=== PATIENT | female | born 1995 | race Caucasian/White ===

== ENCOUNTER → 2016-06-10 | Outpatient (CLI) | payer BC | END | disposition home or self-care (01) | LOC: C.PAPS 14:00 | PROVIDERS: ATTEND Nurse Practitioner | DX: Z01.411 Encounter for gynecological examination (general) (routine) with abnormal findings (principal); R87.616 Satisfactory cervical smear but lacking transformation zone ==

== ENCOUNTER 2024-04-05 07:51 | Inpatient (IN) ==
[2024-04-05] MEDS ORDERED: LIDOCAINE 1% LOCAL 20 ML VIAL INFIL PRN (08:05)
[2024-04-05] MEDS: SODIUM CHLORIDE 0.9% 1,000 ML IV SCH (08:15)
[2024-04-05] MEDS: ceFAZolin 2000MG 2,000 MG/15 ML SYR IV STA (08:26)
--- NOTE | 2024-04-05 08:28 | History & Physical Report ---
Date of Service April 05, 2024 Assessment & Plan (1) Supervision of normal intrauterine in primigravida: Plan: primip at 38 6/7 weeks in active labor GBS(+) PCN allergy ( rash) will start Mefoxin now requesting epidural analgesia anticipate vaginal History of Present Illness Primary Care Provider: KIRAN Tinsley Patient is a 28 yo EDC 04/13/24 who presents with 38 6/7 weeks in active labor. contractions started about 1am and are now every 3 minutes. (+) bloody show (-) SPROM GBS(+) otherwise uncomplicated. Allergies Allergy/AdvReac Type Severity Reaction Status Date / Time shellfish derived Allergy Unknown Verified 03/29/24 14:23 amoxicillin Allergy Intermediate Rash Uncoded 03/29/24 14:23 Home Medications Medication Instructions Recorded Confirmed Type epinephrine 0.3 mg/0.3 mL 0.3 mg (0.3 mL) IM Q10M PRN 10/29/21 03/29/24 Rx injection, auto-injector anaphylaxis #1 ea cholecalciferol (vitamin D3) sublingual 01/18/23 03/29/24 History ascorbic acid (vitamin C) PO 08/23/23 03/29/24 History ferrous sulfate 325 mg (65 mg 325 mg PO Q OTHER DAY 08/23/23 04/05/24 History iron) tablet prenat.vits,jamarcus,oov-aefi-jojzo tab PO 08/23/23 03/29/24 History Patient History Medical History Anaphylaxis due to shellfish COVID-19 (02/2020) Surveillance of (intrauterine) contraceptive device Surgical History [place] teeth extracted Family History Father Kidney disease Other Diabetes Hypertension Denies family history of Ovarian cancer Prostate cancer Myocardial infarction Breast cancer Colorectal cancer Social History (Updated 08/23/23 @ 11:06 by Jimena Bojorquez) Smoking Status: Never smoker Second Hand Exposure: No; Do You Dip or Chew Tobacco: No; Hx Alcohol Use: No Hx Substance Use: No Preferred Language: Martiniquais Communication Ability: Effective 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 current occupational status: employed current occupation: [employer] Other Information That Helps Us Care for You: No Feels Safe at Home: Yes Safety Concerns: Feels Safe At This Time caffeine: Yes (coffee) Dental Care, Regularly: Yes Physical Activity Frequency: 1-2 Times per Week Physical Activity Frequency Comment: walks dog daily Seatbelt Use: always Sunscreen Use: No Assistive Devices: None Review of Systems All systems reviewed & are unremarkable except as noted in HPI & below Physical Exam Constitutional: WD/WN, vitals as above Psychiatric: A+Ox3, euthymic affect Genitourinary: OB Exam Abdomen: + vertex and + regular contractions (Q3 minutes moderate) Manual OB Exam: + cervical dilation 7 cm, + cervical effacement 100% and + station 0 OB Exam Monitor Tracing: + external FHT monitor used, + external uterine monitor used and + normal FHT variability Results & Data Vital Signs (Past 12 Hours) Vital Signs Temp Pulse Resp BP Pulse Ox 04/05/24 08:20 98 04/05/24 08:20 83 04/05/24 08:20 153/97 H 04/05/24 08:08 98.1 F 20 04/05/24 07:58 78 144/93 H Code Status & VTE Plan VTE Prophylaxis Plan VTE Prophylaxis will be ordered: No Coding Level of Care Code 26498 INT INP/OBS CARE 1/40MIN Diagnoses Encounter for supervision of normal first in third trimester Z34.03 Trimester: third trimester (1) Supervision of normal intrauterine in primigravida Trimester: third trimester Qualified Code(s): Z34.03 - Encounter for supervision of normal first , third trimester
[2024-04-05] MEDS ORDERED: ONDANSETRON INJ 2 MG/ML 2 ML VIAL IV PRN ×2 (08:31→08:41)
[2024-04-05 08:32] LABS: Hematocrit (blood only) 35.3 % (37.0-47.0); Hemoglobin 12.1 g/dl (12.0-16.0); Mean Corpuscular Hemoglobin 30.8 pg (25.0-34.0); Mean Corpuscular Hgb Conc 34.3 g/dL (32.0-36.0); Mean Corpuscular Volume 89.8 fL (80.0-100.0); Mean Platelet Volume 9.6 fL (9.4-12.4); Platelet Count 277 K/uL (130-400); RDW Coefficient of Variation 13.2 % (11.5-14.5); RDW Standard Deviation 43.5 fL (36.4-46.3); Red Blood Count 3.93 M/uL (4.20-5.40)
[2024-04-05] MEDS ORDERED: ePHEDrine sulfate 50 MG/ML AMP IV PRN (08:41)
[2024-04-05] MEDS ORDERED: NALBUPHINE HCL INJ 10 MG/ML AMP IV PRN (08:41)
[2024-04-05] MEDS ORDERED: diphenhydrAMINE 50 MG/ML VIAL IV PRN (08:41)
[2024-04-05] MEDS ORDERED: fentaNYL citrate PF 100 MCG/2 ML VIAL EPI PRN (08:41)
[2024-04-05] MEDS ORDERED: SODIUM CHLORIDE 0.9% PF INJ 10 ML VIAL EPI PRN (08:41)
[2024-04-05] MEDS ORDERED: ROPIVACAINE 0.5% PF 5 MG/ML 20 ML VIAL EPI PRN (08:41)
[2024-04-05] MEDS ORDERED: NALOXONE HCL 1 MG in SODIUM CHLORIDE 0.9% 1,000 ML IV PRN (08:41)
[2024-04-05] MEDS ORDERED: LIDOCAINE 2% MPF LOCAL 5 ML VIAL EPI PRN (08:41)
[2024-04-05] MEDS ORDERED: BUPIVACAINE 0.25% PF 30 ML VIAL EPI PRN (08:41)
[2024-04-05] MEDS ORDERED: NALOXONE HCL 0.4 MG/1 ML VIAL/CARP IV PRN (08:41)
--- NOTE | 2024-04-05 08:43 | Anesthesiology Consultation ---
Date of Service April 05, 2024 Assessment & Plan (1) Encounter for pre-operative examination: Chart Review Chart Review: Patient NOT seen in Pre Admission Testing and Acceptable Risk for Labor Epidural Consults Requested none History Height/Weight Height: 5 ft 8 in Weight: 87.543 kg Allergies Allergy/AdvReac Type Severity Reaction Status Date / Time shellfish derived Allergy Unknown Verified 03/29/24 14:23 amoxicillin Allergy Intermediate Rash Uncoded 03/29/24 14:23 Medications Home Medications Medication Instructions Recorded Confirmed Last Taken epinephrine 0.3 mg/0.3 mL 0.3 mg (0.3 mL) IM Q10M PRN 10/29/21 03/29/24 Unknown injection, auto-injector anaphylaxis #1 ea cholecalciferol (vitamin D3) sublingual 01/18/23 03/29/24 04/04/24 ascorbic acid (vitamin C) PO 08/23/23 03/29/24 04/04/24 ferrous sulfate 325 mg (65 mg 325 mg PO Q OTHER DAY 08/23/23 04/05/24 04/04/24 iron) tablet prenat.vits,jamarcus,ulr-gfit-appuf tab PO 08/23/23 03/29/24 Unknown Active Medications Generic Name Dose Route Start Last Admin Trade Name Freq PRN Reason Stop Dose Admin Sodium Chloride 1,000 mls @ 50 mls/hr 04/05/24 08:30 04/05/24 08:45 Nss IV 04/06/24 08:29 50 mls/hr .Q20H CAR Infusion Past Medical History Medical History (Updated 04/05/24 @ 08:43 by Sathish Alfaro MD) Encounter for pre-operative examination COVID-19 (02/2020) Surveillance of (intrauterine) contraceptive device Mirena inserted 06/12/18 - card reviewed - removed 01/12/22 Anaphylaxis due to shellfish Exercise / Class Metabolic Activity II 4-5 Yardwork/Stairs/Walk up hill Past Family History Family History Father Kidney disease Other Diabetes Hypertension Denies family history of Ovarian cancer Prostate cancer Myocardial infarction Breast cancer Colorectal cancer Past Surgical History Surgical History [place] teeth extracted Past Anesthesia History No Hx of Anesthesia Complications and No Family Hx of Anesthesia Complications Social History Smoking Status: Never smoker Do You Dip or Chew Tobacco: No Hx Alcohol Use: No Alcohol type: wine Hx Substance Use: No substance use type: does not use Physical Exam Vital Signs Last Vital Signs Temp 36.7 C 04/05/24 08:30 Pulse 86 04/05/24 09:00 Resp 20 04/05/24 08:30 BP 152/91 H 04/05/24 09:00 Pulse Ox 100 04/05/24 08:55 Testing Laboratory Results 04/05/24 08:16
[2024-04-05] MEDS: fentANYL 2 MCG/ML BUPIVacaine 0.125%-NSS 100ML BAG ONE (08:51)
[2024-04-05] MEDS: fentaNYL citrate PF 100 MCG/2 ML VIAL ONE (08:52)
[2024-04-05] MEDS: BUPIVACAINE 0.25% PF 30 ML VIAL ONE (08:52)
[2024-04-05] MEDS: LIDOCAINE 2%/EPINEPHRINE 1:200,000 20 ML PF ONE (09:00)
[2024-04-05] MEDS: ONDANSETRON INJ 2 MG/ML 2 ML VIAL ONE (09:25)
[2024-04-05] MEDS: LIDOCAINE 2%/EPINEPHRINE 1:200,000 20 ML PF EPI STA (09:26)
[2024-04-05] MEDS: SODIUM CHLORIDE 0.9% PF INJ 10 ML VIAL EPI STA (09:26)
[2024-04-05] MEDS: fentaNYL citrate PF 100 MCG/2 ML VIAL EPI STA (09:26)
[2024-04-05] MEDS: BUPIVACAINE 0.25% PF 30 ML VIAL EPI STA (09:26)
--- NOTE | 2024-04-05 12:20 | Labor Progress Brief Note ---
Date of Service April 05, 2024 Subjective feeling more discomfort w/ ctx Assessment & Plan (1) Supervision of normal intrauterine in primigravida: Trimester: third trimester Qualified Code(s): Z34.03 - Encounter for supervision of normal first , third trimester (2) Group B streptococcal infection during : Plan 28 yo G1 at 38 6/7 wga presents in labor Mild range bps currently but in pain, will continue to monitor Fetus cat 1 Labor - progress noted and now s/p arom. augment prn GBS+, mefoxitin ordered epidural in place Physical Exam Genitourinary: Manual OB Exam: + cervical dilation 9 cm, + cervical effacement 90%, + station 0 and + amniotic fluid (arom clear) OB Exam Monitor Tracing: + external FHT monitor used, + external uterine monitor used (q3) and + category I (120/mod/+accel/-decel) Results & Data Vital Signs (Past 12 Hours) Vital Signs Temp Pulse Resp BP Pulse Ox 04/05/24 12:15 96 04/05/24 12:15 78 04/05/24 12:15 155/95 H 04/05/24 12:10 95 04/05/24 12:10 98 H 04/05/24 12:05 89 L 04/05/24 12:05 81 04/05/24 12:00 98 04/05/24 12:00 90 04/05/24 11:59 80 04/05/24 11:59 124/73 04/05/24 11:55 95 04/05/24 11:55 81 04/05/24 11:50 97 04/05/24 11:50 85 04/05/24 11:45 97 04/05/24 11:45 87 04/05/24 11:44 75 04/05/24 11:44 120/61 04/05/24 11:40 95 04/05/24 11:40 80 04/05/24 11:35 97 04/05/24 11:35 84 04/05/24 11:31 80 04/05/24 11:31 153/76 H 04/05/24 11:30 20 04/05/24 11:30 20 04/05/24 11:30 99 04/05/24 11:30 85 04/05/24 11:25 99 04/05/24 11:25 88 04/05/24 11:20 99 04/05/24 11:20 97 H 04/05/24 11:15 99 04/05/24 11:15 84 04/05/24 11:14 83 04/05/24 11:14 138/79 04/05/24 11:10 100 04/05/24 11:10 82 04/05/24 11:05 100 04/05/24 11:05 84 04/05/24 11:00 18 04/05/24 11:00 18 04/05/24 11:00 98 04/05/24 11:00 81 04/05/24 10:55 99 04/05/24 10:55 80 04/05/24 10:50 99 04/05/24 10:50 81 04/05/24 10:45 98.2 F 04/05/24 10:45 100 04/05/24 10:45 77 04/05/24 10:40 100 04/05/24 10:40 93 H 04/05/24 10:40 136/91 04/05/24 10:35 100 04/05/24 10:35 80 04/05/24 10:35 139/78 04/05/24 10:30 20 04/05/24 10:30 20 04/05/24 10:30 100 04/05/24 10:30 80 04/05/24 10:29 80 04/05/24 10:29 139/80 04/05/24 10:25 100 04/05/24 10:25 82 04/05/24 10:24 81 04/05/24 10:24 140/79 04/05/24 10:20 100 04/05/24 10:20 88 04/05/24 10:20 80 04/05/24 10:20 136/74 04/05/24 10:15 100 04/05/24 10:15 89 04/05/24 10:14 83 04/05/24 10:14 140/81 04/05/24 10:11 78 04/05/24 10:11 147/82 H 04/05/24 10:10 100 04/05/24 10:10 80 04/05/24 10:05 100 04/05/24 10:05 83 04/05/24 10:04 81 04/05/24 10:04 141/80 H 04/05/24 10:00 20 04/05/24 10:00 20 04/05/24 10:00 100 04/05/24 10:00 78 04/05/24 10:00 143/79 H 04/05/24 09:55 98 04/05/24 09:55 86 04/05/24 09:55 84 04/05/24 09:55 124/82 04/05/24 09:50 100 04/05/24 09:50 80 04/05/24 09:50 81 04/05/24 09:50 132/79 04/05/24 09:45 97 04/05/24 09:45 83 04/05/24 09:44 88 04/05/24 09:44 135/84 04/05/24 09:40 99 04/05/24 09:40 92 H 04/05/24 09:40 129/80 04/05/24 09:35 97 04/05/24 09:35 84 04/05/24 09:34 85 04/05/24 09:34 137/81 04/05/24 09:30 18 04/05/24 09:30 18 04/05/24 09:30 97 04/05/24 09:30 86 04/05/24 09:30 141/80 H 04/05/24 09:25 97 04/05/24 09:25 78 04/05/24 09:25 82 04/05/24 09:25 142/81 H 04/05/24 09:20 96 04/05/24 09:20 79 04/05/24 09:19 81 04/05/24 09:19 142/80 H 04/05/24 09:15 18 04/05/24 09:15 18 04/05/24 09:15 95 04/05/24 09:15 79 04/05/24 09:14 78 04/05/24 09:14 149/84 H 04/05/24 09:12 81 04/05/24 09:12 146/82 H 04/05/24 09:11 94 04/05/24 09:11 90 04/05/24 09:10 18 04/05/24 09:10 18 04/05/24 09:10 95 04/05/24 09:10 80 04/05/24 09:10 86 04/05/24 09:10 142/78 H 04/05/24 09:08 81 04/05/24 09:08 150/82 H 04/05/24 09:06 86 04/05/24 09:06 144/83 H 04/05/24 09:05 20 04/05/24 09:05 20 04/05/24 09:05 97 04/05/24 09:05 82 04/05/24 09:04 83 04/05/24 09:04 143/82 H 04/05/24 09:01 88 04/05/24 09:01 158/84 H 04/05/24 09:00 98 04/05/24 09:00 84 04/05/24 09:00 86 04/05/24 09:00 152/91 H 04/05/24 08:58 93 H 04/05/24 08:58 149/92 H 04/05/24 08:56 77 04/05/24 08:56 145/97 H 04/05/24 08:55 100 04/05/24 08:55 83 04/05/24 08:54 88 04/05/24 08:54 134/90 04/05/24 08:50 100 04/05/24 08:50 86 04/05/24 08:45 100 04/05/24 08:45 91 H 04/05/24 08:40 97 04/05/24 08:40 88 04/05/24 08:35 100 04/05/24 08:35 82 04/05/24 08:30 20 04/05/24 08:30 98.1 F 20 04/05/24 08:30 100 04/05/24 08:30 107 H 04/05/24 08:25 100 04/05/24 08:25 79 04/05/24 08:20 98 04/05/24 08:20 83 04/05/24 08:20 153/97 H 04/05/24 08:08 98.1 F 20 04/05/24 07:58 78 144/93 H Coding Level of Care Code None Diagnoses Encounter for supervision of normal first in third trimester Z34.03 Trimester: third trimester Group B streptococcal infection during O98.819; B95.1
[2024-04-05] MEDS ORDERED: LIDOCAINE 2%/EPINEPHRINE 1:200,000 20 ML PF ONE (12:26)
[2024-04-05] MEDS ORDERED: ROPIVACAINE 0.5% 5 MG/ML 30 ML VIAL ONE (12:26)
--- NOTE | 2024-04-05 12:41 | Anesthesia Procedure Note ---
Date of Service April 05, 2024 Anesthesia Epidural Re-Dose Vital Signs Temp Pulse Resp BP Pulse Ox 36.8 C 92 H 18 156/85 H 97 04/05/24 10:45 04/05/24 12:39 04/05/24 12:00 04/05/24 12:39 04/05/24 12:35 Notes Pain Intensity: 7 Dilatation (cm): 9.0 Effacement (%): 100 Called by nursing to evaluate epidural as the patient is having increased pain. The epidural was re-dosed with the following medications (all medications via epidural route) after negative aspiration of the epidural catheter for CSF/HEME. 5ml of 2% LIdocaine along with 5ml of 0.5% ropivicaine. After Epidural Re-Dose Mental Status: alert / awake / arousable Pain: improving with treatment Airway Patency, RR, SpO2: stable & adequate BP & HR: stable & adequate
[2024-04-05] MEDS: SODIUM CHLORIDE 0.9% PF INJ 10 ML VIAL ONE (14:15)
[2024-04-05] MEDS: fentANYL 2 MCG/ML BUPIVacaine 0.125%-NSS 100ML BAG EPI PRN (14:34)
[2024-04-05] MEDS: OXYTOCIN 30 UNITS/NSS 30 UNITS/500 ML BAG IV PRN (15:14)
--- NOTE | 2024-04-05 15:31 | Delivery Summary ---
Vaginal Delivery Summary Date of Service April 05, 2024 Vaginal Delivery Summary [facility] PREOPERATIVE DIAGNOSIS: 1. Single intrauterine at 38 6/7 wga 2. Labor 3. GBS+ POSTOPERATIVE DIAGNOSIS: 1. Single intrauterine at 38 6/7 wga 2. Labor 3. GBS+ 4. Delivered PROCEDURE: 1. Normal spontaneous vaginal delivery. SURGEON: Tammy Bustillo MD ANESTHESIA: Epidural. QUANTITATIVE BLOOD LOSS: 81 mL FLUIDS: Continuous LR. URINE OUTPUT: None. COMPLICATIONS: None. CONDITION: Stable. INDICATIONS: 28 yo G1 at 38 6/7 wga presented with contractions and found to be 7cm. She received an epidural for pain control and underwent arom. She progressed to complete and desired to push. FINDINGS: A viable male , weight pending with Apgars of 8 and 9 at 1 and 5 minutes respectively. SPECIMEN: Cord blood OPERATIVE REPORT: The patient progressed to 10 cm, 100% effaced and +2 station, pushed over intact perineum with anesthesia to deliver a viable male infant, weight and Apgars as above. Head of delivered in TORIBIO position. No nuchal cord was present. Body and shoulders were delivered without difficulty. was delivered to maternal abdomen and nursing staff. Delayed cord clamping was performed for 60 seconds. Cord was clamped and cut. Cord blood was obtained. Placenta delivered spontaneously intact with 3-vessel cord. IV oxytocin and fundal massage were given for excellent hemostasis. Vagina, cervix, perineum, and placenta were inspected. A right vaginal laceration was repaired with 4-0 vicryl, there was excellent hemostasis. Sponge and needle counts correct x2. No sponges were left behind. Mother and stable in immediate period. [facility] V[facility] Delivery Charge Vaginal Delivery Codes: 62041 global code for the antepartum, delivery, and post- Delivery Type Details: [facility]
[2024-04-05] MEDS ORDERED: bisacodyL 10 MG SUPP PR PRN (15:43)
[2024-04-05] MEDS ORDERED: HYDROCORTISONE ACETATE 25 MG SUPP PR PRN (15:43)
[2024-04-05] MEDS ORDERED: OXYTOCIN 30 UNITS/NSS 30 UNITS/500 ML BAG IV PRN (15:43)
[2024-04-05] MEDS ORDERED: ACETAMINOPHEN 325 MG TAB PO PRN (15:43)
[2024-04-05] MEDS ORDERED: NURSING L&D Epidural Breakthrough Pain Update ONE (15:44)
[2024-04-05] MEDS: ePHEDrine sulfate 50 MG/ML AMP ONE (15:45)
--- NOTE | 2024-04-05 16:27 | Anesthesia Procedure Note ---
Date of Service April 05, 2024 Anesthesia Post Epidural Note Vital Signs Vital Signs: Temp Pulse Resp BP Pulse Ox 36.8 C 80 16 134/75 96 04/05/24 12:30 04/05/24 16:25 04/05/24 15:55 04/05/24 16:25 04/05/24 15:30 Pain Intensity Lower Pelvic: Pain Intensity: 7 Notes Mental Status: alert / awake / arousable and participated in evaluation Nausea / Vomiting: adequately controlled Pain: adequately controlled Airway Patency, RR, SpO2: stable & adequate BP & HR: stable & adequate Hydration State: stable & adequate Neuraxial Anesthesia: was administered and sensory block is resolving Anesthetic Complications: no major complications apparent and Pt Satisfied with anesthetic care Epidural: Removed without complications and With tip intact
[2024-04-05] MEDS: DIPHTHER/TETAN/PERTUS Vaccine (Tdap, Adol/Adult) 0.5mL IM ONE (16:51)
[2024-04-05] MEDS: IBUPROFEN 600 MG TAB PO PRN (21:15)
[2024-04-05] MEDS: DOCUSATE SODIUM 100 MG CAP PO SCH (21:15)
[2024-04-05] MEDS: BENZOCAINE 20% SPRY 85 APPLN/85 GM CAN EXT PRN (23:54)
[2024-04-06 04:40] VITALS: RESP 16
--- NOTE | 2024-04-06 07:15 | Obstetrical Progress Note ---
Date of Service April 06, 2024 Assessment & Plan (1) Group B streptococcal infection during : (2) Normal spontaneous vaginal delivery: Plan Both mom and baby doing well. Observe today. Hopefully can go home tomorrow if they feel ready. Admission and Anticipated Discharge Date Admission Date: April 05, 2024 Supervising Physician Co-Signing Physician Notes Resident Physician Supervision Note: I interviewed and examined the patient. Discussed with Dr. Medrano and agree with findings and plan as documented in the note. Any exceptions or clarifications are listed here: PP1 s/p , doing well. Continue routine care Documented By: Tammy Bustillo MD Subjective #12 hrs following at 38+6 WGA. No active complains Both mom and baby doing well. Pain: Mild, intermittent Lochia: Moderate Diet: Regular Ob diet Gas: passing Peeing: Normal, no bladder distension Ambulation: Normally Review of Systems Review of Systems: No SOB, chest pain, leg pain No dizziness, headache, palpitation No Blurring of vision , fever Physical Exam Physical Exam: General: Alert and oriented. No acute distress. CVS: S1 S2+ No murmurs, regular rhythm. Respiratory: CTA bilaterally. No rhonchi, wheezes, or crackles. No increased work of breathing. Abdomen: Bowel sound +. Soft, nontender Uterus: Fundus firm and palpable few cm below the umbilicus. Lower extremities: No LE edema. No deep calf pain. Results & Data Vital Signs (Past 12 Hours) Vital Signs Temp Pulse Resp BP Pulse Ox O2 Del Method 04/06/24 04:30 36.7 C 86 16 113/71 97 Room Air 04/06/24 00:55 36.8 C 82 18 124/78 97 Room Air 04/05/24 20:50 36.7 C 80 18 121/81 100 Room Air
[2024-04-06] MEDS: PRENATAL VITAMIN 1 TAB PO SCH (07:49)
[2024-04-06] MEDS: FERROUS SULFATE 325 MG TAB PO SCH (07:49)
[2024-04-06] MEDS: bisacodyL 5 MG TABEC PO SCH (20:11)
--- NOTE | 2024-04-07 07:22 | Obstetrical Progress Note ---
Date of Service April 07, 2024 Assessment & Plan (1) Group B streptococcal infection during : (2) Normal spontaneous vaginal delivery: Plan Both mom and baby doing well. Feels ready to go home. Discharge today. Admission and Anticipated Discharge Date Admission Date: April 05, 2024 Supervising Physician Co-Signing Physician Notes Resident Physician Supervision Note: I interviewed and examined the patient. Discussed with Dr. Medrano and agree with findings and plan as documented in the note. Any exceptions or clarifications are listed here: Doing well ppd 2. Desires d/c. Instructions given. Documented By: Marilin Castaneda MD, FACOG Subjective 2PPD following at 38+6 WGA. No active complains Both mom and baby doing well. Pain: Mild, intermittent Lochia: Moderate Diet: Regular Ob diet Gas: passing Peeing: Normal, no bladder distension Ambulation: Normally Review of Systems Review of Systems: No SOB, chest pain, leg pain No dizziness, headache, palpitation No Blurring of vision , fever Physical Exam Physical Exam: General: Alert and oriented. No acute distress. CVS: S1 S2+ No murmurs, regular rhythm. Respiratory: CTA bilaterally. No rhonchi, wheezes, or crackles. No increased work of breathing. Abdomen: Bowel sound +. Soft, nontender Uterus: Fundus firm and palpable few cm below the umbilicus. Lower extremities: No LE edema. No deep calf pain. Results & Data Vital Signs (Past 12 Hours) Vital Signs Temp Pulse Resp BP Pulse Ox O2 Del Method 04/06/24 22:55 36.6 C 76 16 111/72 96 Room Air
[2024-04-07 07:49] VITALS: BP 129/90; PULSE 89; TEMP 98.4; O2SAT 97
== END 2024-04-07 11:01 | disposition home or self-care (01) | DRG 806 ==
LOC: OPB 07:51 → 4S1 07:52 → 4E2 17:59